=== PATIENT | female | born 1980 | race Caucasian/White ===

== ENCOUNTER 2017-12-10 19:07 | Emergency (ER) | payer OTHER ==
[~2017-12-10] VITALS: Ht 165.1 cm; Wt 60.8 kg
[~2017-12-10 19:07] MED LIST: CEPH500 PO; CLON.1 PO; HYDACE5 PO; HYDPAM50 PO; IBUP800 PO; METR500 PO; NEOPOLHYD OP; OXYACE5T PO; Polytrim Eye Dr10 ML LEFTEYE; SERT50 PO
[2017-12-10] MEDS ORDERED: WELLBUTRIN PO (19:17)
[2017-12-10] MEDS ORDERED: Pepcid40 MG PO (19:56)
[2017-12-10] MEDS ORDERED: METPRE4DP PO (19:56)
[2017-12-10] MEDS ORDERED: DIPH50 PO (19:56)
== END 2017-12-10 20:10 | disposition home or self-care (01) ==
LOC: ER 19:07
DX: T78.3XXA Angioneurotic edema, initial encounter (principal); T78.8XXA Other adverse effects, not elsewhere classified, initial encounter; F41.9 Anxiety disorder, unspecified; F17.200 Nicotine dependence, unspecified, uncomplicated
CPT/HCPCS: 96372; 96374; 96375; 99283; J0171; J1200; J2930; J3490

== ENCOUNTER → 2018-02-14 | Outpatient (CLI) | payer OTHER ==
[~2018-02-14] MED LIST changes: +DIPH50 PO; +METPRE4DP PO; +Pepcid40 MG PO; +WELLBUTRIN PO
== END | disposition home or self-care (01) ==
LOC: LAB 15:48 → LAB SHORT 15:48
PROVIDERS: Obstetrics & Gynecology
DX: Z01.419 Encounter for gynecological examination (general) (routine) without abnormal findings (principal)
CPT/HCPCS: 87624; G0123

== ENCOUNTER 2019-08-06 17:07 | Emergency (ER) | payer OTHER ==
[~2019-08-06] VITALS: Ht 165.1 cm; Wt 56.7 kg
[2019-08-06] MEDS ORDERED: ERYT1OIN RIGHTEYE (17:53)
== END 2019-08-06 17:55 | disposition home or self-care (01) ==
LOC: ER 17:07
DX: H10.9 Unspecified conjunctivitis (principal); F17.210 Nicotine dependence, cigarettes, uncomplicated
CPT/HCPCS: 99282

== ENCOUNTER 2021-03-06 11:29 | Emergency (ER) | payer OTHER ==
[~2021-03-06] VITALS: Ht 165.1 cm; Wt 59.0 kg
[~2021-03-06 11:29] MED LIST changes: +ERYT1OIN RIGHTEYE
[2021-03-06] MEDS ORDERED: TRAM50 PO (12:29)
[2021-03-06] MEDS ORDERED: Veetids 500500 MG PO (12:29)
[2021-03-06] MEDS ORDERED: KETO10 PO (12:29)
== END 2021-03-06 12:39 | disposition home or self-care (01) ==
LOC: ER 11:29
DX: K04.7 Periapical abscess without sinus (principal); K02.9 Dental caries, unspecified; F17.210 Nicotine dependence, cigarettes, uncomplicated
CPT/HCPCS: 99282

== ENCOUNTER → 2021-10-23 | Outpatient (CLI) | payer OTHER ==
[~2021-10-23] MED LIST changes: +KETO10 PO; +TRAM50 PO; +Veetids 500500 MG PO
[2021-10-26 02:06] LABS: CHLAMYDIA TRACHOMATIS, NAA Negative (Negative)
== END | disposition home or self-care (01) ==
LOC: LAB SHORT 19:23
PROVIDERS: Physician Assistant
DX: N39.0 Urinary tract infection, site not specified (principal)
CPT/HCPCS: 87086; 87491; 87591

== ENCOUNTER → 2022-04-05 | Outpatient (CLI) | payer OTHER ==
[2022-04-06 14:20] LABS: Candida species (DNA Probe) Negative (NEGATIVE); G. vaginalis (DNA Probe) Negative (NEGATIVE); T. vaginalis (DNA Probe) Positive (NEGATIVE)
[2022-04-09 01:10] LABS: CHLAMYDIA TRACHOMATIS, NAA Negative (Negative)
== END | disposition home or self-care (01) ==
LOC: LAB 18:40 → LAB SHORT 18:40
PROVIDERS: Family Medicine
DX: N89.8 Other specified noninflammatory disorders of vagina (principal)
CPT/HCPCS: 87480; 87491; 87510; 87591; 87660

== ENCOUNTER 2023-04-15 00:01 | Emergency (ER) | payer OTHER ==
[~2023-04-15] VITALS: Ht 165.1 cm; Wt 59.0 kg
[2023-04-15 00:04] VITALS: BP 107/74
[2023-04-15 00:34] LABS: BASOPHILS ABSOLUTE AUTO 0.05 K/mm3 (0.00-0.23); BASOPHILS PERCENT AUTO 1 % (0-2); EOSINOPHILS ABSOLUTE AUTO 0.33 K/mm3 (0.00-0.68); EOSINOPHILS PERCENT AUTO 4 % (0-6); Hematocrit 37.8 % (33.0-51.0); Hemoglobin 12.9 g/dL (11.5-16.0); IMMATURE GRAN ABSOLUTE AUTO 0.02 K/mm3 (0.00-0.10); IMMATURE GRAN PERCENT AUTO 0 % (0-1); LYMPHOCYTES ABSOLUTE AUTO 1.78 K/mm3 (0.84-5.20); LYMPHOCYTES PERCENT AUTO 19 % (21-46); MONOCYTES ABSOLUTE AUTO 0.67 K/mm3 (0.16-1.47); MONOCYTES PERCENT AUTO 7 % (4-13); Mean Corpuscular HGB 29.8 pg (26.0-34.0); Mean Corpuscular HGB Conc 34.1 g/dL (31.5-36.5); Mean Corpuscular Volume 87 fL (80-100); Mean Platelet Volume 9.9 fL (9.1-12.4); NEUTROPHILS PERCENT AUTO 70 % (41-73); Platelet Count 408 K/mm3 (150-400); RDW Coefficient Variation 11.6 % (11.7-14.2); RDW Standard Deviation 37.3 fL (35.1-46.3); Red Blood Cell Count 4.33 M/mm3 (3.80-5.20); White Blood Cell Count 9.55 K/mm3 (4.00-11.30)
[2023-04-15 00:53] LABS: C-REACTIVE PROTEIN, EXT RANGE 0.382 mg/dL (0.000-0.300)
[2023-04-15 01:03] LABS: Albumin, Blood 3.8 g/dL (3.4-5.0); Bilirubin, Total 0.4 mg/dL (0.1-1.0); Bun/Creatinine Ratio 23.3 (12.0-20.0); Creatinine, Blood 0.69 mg/dL (0.40-1.00); Potassium, Blood 3.9 mmol/L (3.5-5.5); Total Protein, Blood 7.8 g/dL (6.4-8.2)
[2023-04-15] MEDS ORDERED: CEPH500 PO (02:52)
== END 2023-04-15 03:12 | disposition home or self-care (01) ==
LOC: ER 00:01
PROVIDERS: Student in an Organized Health Care Education/Training Program
DX: L03.115 Cellulitis of right lower limb (principal); F17.210 Nicotine dependence, cigarettes, uncomplicated
CPT/HCPCS: 73610; 73630; 80053; 85025; 85651; 86140; 96374; 96375; 99283-25; J0690; J1885

== ENCOUNTER 2023-10-04 02:25 | Emergency (ER) | payer OTHER ==
[~2023-10-04] VITALS: Ht 165.1 cm; Wt 56.2 kg
[2023-10-04 02:37] VITALS: BP 120/79
[2023-10-04 03:07] LABS: Source, Urine Clean Catch
[2023-10-04 03:29] LABS: Bilirubin, Urine Neg (Neg); Blood, Urine 5+ (Neg); Glucose Qualitative, Urine Neg (Neg); Ketones, Urine 1+ (Neg); Leukocyte Esterase, Urine 2+ (Neg); Nitrite, Urine Neg (Neg); Protein, Urine 3+ (Neg); Urobilinogen, Urine NORM (Normal)
[2023-10-04 03:47] LABS: Appearance, Urine Turbid (Clear); Color, Urine Amber (P-Yellow)
[2023-10-04 03:51] LABS: Bacteria Many /hpf; Red Blood Cells, Urine TNTC /hpf (0-2); Squamous Epithelial Cells Mod /hpf (Few)
[2023-10-04] MEDS ORDERED: CEPH500 PO (04:07)
== END 2023-10-04 04:24 | disposition home or self-care (01) ==
LOC: ER 02:25
PROVIDERS: Emergency Medicine
DX: N39.0 Urinary tract infection, site not specified (principal); F17.210 Nicotine dependence, cigarettes, uncomplicated
CPT/HCPCS: 81001; 87077; 87086; 87186; 99283; A9270

== ENCOUNTER 2023-10-26 14:00 | Emergency (ER) | payer OTHER ==
[~2023-10-26] VITALS: Ht 165.1 cm; Wt 54.4 kg
[2023-10-26 14:27] LABS: Hematocrit 33.3 % (33.0-51.0); Hemoglobin 10.9 g/dL (11.5-16.0); Mean Corpuscular HGB 29.6 pg (26.0-34.0); Mean Corpuscular HGB Conc 32.7 g/dL (31.5-36.5); Mean Corpuscular Volume 91 fL (80-100); Mean Platelet Volume 10.3 fL (9.1-12.4); Platelet Count 283 K/mm3 (150-400); RDW Coefficient Variation 11.9 % (11.7-14.2); RDW Standard Deviation 39.2 fL (35.1-46.3); Red Blood Cell Count 3.68 M/mm3 (3.80-5.20); White Blood Cell Count 8.08 K/mm3 (4.00-11.30)
[2023-10-26 14:47] LABS: Ethanol (Alcohol), Blood, Med <3 mg/dL; Free Thyroxine 1.13 ng/dL (0.70-1.60); Salicylate <1.7 mg/dL (2.8-20.0)
[2023-10-26 14:48] LABS: Acetaminophen, Random <2.0 ug/mL (10.0-30.0); Alanine Aminotransfer (ALT/SGP 31 U/L (12-78); Albumin, Blood 3.7 g/dL (3.4-5.0); Alk Phos 45 U/L (50-136); Anion Gap 3 mmol/L (6-16); Aspartate Aminotrans (AST/SGOT 43 U/L (12-37); Bilirubin, Total 0.4 mg/dL (0.1-1.0); Blood Urea Nitrogen 19 mg/dL (8-24); Bun/Creatinine Ratio 32.4 (12.0-20.0); CO2, Blood 24 mmol/L (21-32); Calcium, Blood 8.7 mg/dL (8.5-10.1); Chloride, Blood 109 mmol/L (98-108); Creatinine, Blood 0.59 mg/dL (0.40-1.00); Globulin, Blood 3.7 g/dL (2.2-4.0); Glomerular Filtration Rate 117 (60-); Glucose, Blood 135 mg/dL (70-99); Potassium, Blood 3.6 mmol/L (3.5-5.5); Sodium, Blood 136 mmol/L (136-145); Total Protein, Blood 7.4 g/dL (6.4-8.2)
[2023-10-26 14:49] LABS: BASOPHILS PERCENT MAN 0 % (0-2); EOSINOPHILS ABSOLUTE MAN 0.16 K/mm3 (0.00-0.68); EOSINOPHILS PERCENT MAN 2 % (0-6); LYMPHOCYTES ABSOLUTE MAN 4.12 K/mm3 (0.84-5.20); LYMPHOCYTES PERCENT MAN 51 % (21-46); MONOCYTES PERCENT MAN 10 % (4-13); NEUTROPHILS ABSOLUTE MAN 2.98 K/mm3 (1.96-9.15); SEG NEUTROPHILS PERCENT MAN 37 % (41-73); TOTAL CELLS COUNTED 100
[2023-10-26] MEDS ORDERED: NARCAN4 M1 (16:06)
[2023-10-26 18:31] VITALS: BP 116/62
== END 2023-10-26 18:30 | disposition home or self-care (01) ==
LOC: ER 14:00
PROVIDERS: Emergency Medicine
DX: T40.411A Poisoning by fentanyl or fentanyl analogs, accidental (unintentional), initial encounter (principal); F15.90 Other stimulant use, unspecified, uncomplicated; F17.210 Nicotine dependence, cigarettes, uncomplicated
CPT/HCPCS: 80053; 84439; 84443; 85025; 93005; 93010; 99284-25; G0480

== ENCOUNTER 2024-11-02 20:32 | Inpatient (IN) | payer OTHER ==
[~2024-11-02] VITALS: Ht 162.6 cm; Wt 81.7 kg
[~2024-11-02 20:32] MED LIST changes: +AMOCLA875 PO; +NARCAN4 M1; +Zithromax250 MG PO
[2024-11-02 21:18] LABS: CORONAVIRUS COVID-19 AG Negative (NEGATIVE); INFLUENZA A AG Negative (NEGATIVE); INFLUENZA B AG Negative (NEGATIVE)
[2024-11-02] MEDS ORDERED: Dexamethasone Sod Phos 10 MG/ML 1ML VIAL IV ONE (21:20)
[2024-11-02] MEDS ORDERED: NS 1,000 ML IV SCH (21:20)
[2024-11-02] MEDS ORDERED: Ampicillin Sod/Sulbactam Sod 3 GM in NS 100 ML IV ONE (21:20)
[2024-11-02] MEDS ORDERED: EPINEPHrine HCL 11.25 MG/0.5 ML VIAL INH ONE (21:20)
[2024-11-02] MEDS ORDERED: Ketorolac Tromethamine 30mg Vial IV ONE (21:20)
[2024-11-02 21:36] LABS: BASOPHILS ABSOLUTE AUTO 0.07 K/mm3 (0.00-0.23); BASOPHILS PERCENT AUTO 1 % (0-2); EOSINOPHILS ABSOLUTE AUTO 0.26 K/mm3 (0.00-0.68); EOSINOPHILS PERCENT AUTO 2 % (0-6); Hematocrit 42.1 % (33.0-51.0); Hemoglobin 14.4 g/dL (11.5-16.0); IMMATURE GRAN ABSOLUTE AUTO 0.05 K/mm3 (0.00-0.10); IMMATURE GRAN PERCENT AUTO 0 % (0-1); LYMPHOCYTES ABSOLUTE AUTO 1.83 K/mm3 (0.84-5.20); LYMPHOCYTES PERCENT AUTO 12 % (21-46); MONOCYTES ABSOLUTE AUTO 1.75 K/mm3 (0.16-1.47); MONOCYTES PERCENT AUTO 12 % (4-13); Mean Corpuscular HGB 29.9 pg (26.0-34.0); Mean Corpuscular HGB Conc 34.2 g/dL (31.5-36.5); Mean Corpuscular Volume 87 fL (80-100); Mean Platelet Volume 10.2 fL (9.1-12.4); NEUTROPHILS PERCENT AUTO 74 % (41-73); Platelet Count 462 K/mm3 (150-400); RDW Coefficient Variation 11.6 % (11.7-14.2); RDW Standard Deviation 37.3 fL (35.1-46.3); Red Blood Cell Count 4.82 M/mm3 (3.80-5.20); White Blood Cell Count 14.96 K/mm3 (4.00-11.30)
[2024-11-02 21:56] LABS: Albumin, Blood 3.1 g/dL (3.4-5.0); Albumin/Globulin Ratio 0.6 (0.8-1.8); Bilirubin, Total 0.4 mg/dL (0.1-1.0); Bun/Creatinine Ratio 29.4 (12.0-20.0); Calcium, Blood 9.7 mg/dL (8.5-10.1); Creatinine, Blood 0.55 mg/dL (0.40-1.00); Globulin, Blood 5.5 g/dL (2.2-4.0); Potassium, Blood 4.7 mmol/L (3.5-5.5); Total Protein, Blood 8.6 g/dL (6.4-8.2)
[2024-11-02] MEDS ORDERED: Morphine Sulfate 4 MG/1 ML Injection IV ONE (23:20)
[2024-11-03] VITALS (7 sets, daily range): BP systolic 111–179; BP diastolic 60–97
[2024-11-03] MEDS ORDERED: NS 1,000 ML IV SCH (00:30)
[2024-11-03] MEDS ORDERED: FentaNYL Citrate 50 MCG/ML 2 ML Injection IV PRN (00:30)
[2024-11-03] MEDS ORDERED: FLU VACC TS2024-25(6MOS UP)/PF 45 MCG/0.5 ML SYRINGE IM SCH (00:30)
[2024-11-03] MEDS ORDERED: Ondansetron HCl 2 MG / ML 2ML Vial IV PRN (00:35)
[2024-11-03] MEDS ORDERED: Methadone HCL 10 MG TAB PO PRN (02:15)
[2024-11-03] MEDS ORDERED: Ketorolac Tromethamine 15mg Vial IV PRN (02:15)
--- NOTE | 2024-11-03 02:23 | NUR ---
NEW ADMIT - HOSPITALIST CONTACT PT ADMIT FOR JEWELS TONSILAR ABCESS. FULL CODE. PT TESTED POSITIVE FOR STREP THROAT. PT ARRIVED TO ROOM AT 0145. PT ABLE TO TRANSFER UNASSISTED. PT IS A/OX4. ABLE TO MAKE NEEDS KNOWN AND FOLLOW DIRECTIONS. PT STATES SHE HAS THROAT PAIN FOR PAST 5 DAYS WITH INCREASED DIFFICULTY SWALLOWING. LOSS OF APPETITE WITH LITTLE INTAKE FOR PAST THREE DAYS. PT REPORTS AT 8/10 PAIN WHEN SWALLOWING. PT DENIES TAKING PRECRIBED MEDS BUT DID REPORT SHE STARTED [facility] WEEKS A[facility]. PT REPORTS SHE STOPPED HEROIN ONE MONTH AGO. PT'S DAILY DOSE OF METHADONE IS 60MG. PT REPORTS SHE HAS NOT BEEN ABLE TO GO FOR THE LAST FEW DAYS. PT DOES NOT HAVE A CAR AND RELIES ON [facility] FOR TRANSPORTATION. PT STATES SHE LIVES WITH A ROOM MATE AND DENIES SAFETY CONCERNS FOR FOOD INSECURITY. ORIENTED PT TO ROOM AND CALL LIGHT. PT DENIES IGNITION SOURCES. CALL TO HOSPITALIST; SPOKE TO . ADVISED OF PT DISCLOSURE OF HX OF DRUG USE AND METHADONE. NEW ORDER TO D/C FENTANYL. ORDER FOR TORODOL 15MG Q8PRN, AND 1X ORDER FOR METHADONE OF 60MG. METHADONE TO BE GIVEN NEEDED UNTIL DOSE CAN BE VERIFIED LATER [facility].
[2024-11-03] MEDS ORDERED: NS 250 ML IV PRN (04:00)
[2024-11-03 05:11] LABS: BASOPHILS ABSOLUTE AUTO 0.04 K/mm3 (0.00-0.23); BASOPHILS PERCENT AUTO 0 % (0-2); EOSINOPHILS ABSOLUTE AUTO 0.04 K/mm3 (0.00-0.68); EOSINOPHILS PERCENT AUTO 0 % (0-6); Hematocrit 40.5 % (33.0-51.0); Hemoglobin 13.9 g/dL (11.5-16.0); IMMATURE GRAN ABSOLUTE AUTO 0.08 K/mm3 (0.00-0.10); IMMATURE GRAN PERCENT AUTO 1 % (0-1); LYMPHOCYTES ABSOLUTE AUTO 1.39 K/mm3 (0.84-5.20); LYMPHOCYTES PERCENT AUTO 9 % (21-46); MONOCYTES ABSOLUTE AUTO 0.15 K/mm3 (0.16-1.47); MONOCYTES PERCENT AUTO 1 % (4-13); Mean Corpuscular HGB 30.3 pg (26.0-34.0); Mean Corpuscular HGB Conc 34.3 g/dL (31.5-36.5); Mean Corpuscular Volume 88 fL (80-100); Mean Platelet Volume 10.4 fL (9.1-12.4); NEUTROPHILS ABSOLUTE AUTO 13.53 K/mm3 (1.96-9.15); NEUTROPHILS PERCENT AUTO 89 % (41-73); Platelet Count 412 K/mm3 (150-400); RDW Coefficient Variation 11.5 % (11.7-14.2); RDW Standard Deviation 36.6 fL (35.1-46.3); Red Blood Cell Count 4.58 M/mm3 (3.80-5.20); White Blood Cell Count 15.23 K/mm3 (4.00-11.30)
[2024-11-03 05:48] LABS: Albumin/Globulin Ratio 0.6 (0.8-1.8); Bilirubin, Total 0.4 mg/dL (0.1-1.0); Bun/Creatinine Ratio 33.9 (12.0-20.0); Creatinine, Blood 0.5 mg/dL (0.40-1.00); Potassium, Blood 4.4 mmol/L (3.5-5.5)
[2024-11-03] MEDS ORDERED: Ampicillin Sod/Sulbactam Sod 3 GM in NS 100 ML IV SCH (06:00)
[2024-11-03] MEDS ORDERED: Dexamethasone Sodium Phosphate 4 MG/ML 1ML Vial IV SCH (08:00)
[2024-11-03] MEDS ORDERED: Enoxaparin 40 MG/0.4 ML SYR SC SCH (09:00)
--- NOTE | 2024-11-03 18:32 | NUR ---
SHIFT SUMMARY PT A&OX4 AND ANSWERS QUESTIONS APPROPRIATELY. PT SPEECH IS MUMBLED AND SOFT. PT RECEIVED SCHEDULED AND PRN MEDICATIONS WITH NO ADVERSE REACTIONS. VSS, NO COMPLAINTS OF CP/PRESSURE OR SOB. PT ABLE TO TOLERATE ADVANCEMENT TO A REGULAR DIET AND HAS HAD SOUP, SANDWHICHES, JELLO, AND PUDDING WITH NO ADVERSE REACTIONS. NO ACUTE EVENTS AT THIS TIME. PT LEFT IN A POSITION OF SAFETY WITH FALL PRECAUTIONS IN PLACE. REPOSITIONED INDEPENDENTLY. CALL LIGHT IN REACH.
[2024-11-04 04:01] VITALS: BP 122/74
--- NOTE | 2024-11-04 04:04 | NUR ---
SHIFT SUMMARY: PT AOX4 AND VERY DROWSY. LUNG SOUNDS CLEAR AND PT DENIES ANY PAIN. TOLERATING MEDICATIONS WELL AND SLEEPING THROUGH MOST OF THE NIGHT. IND IN ROOM AND ABLE TO MAKE NEEDS KNOWN. NO ACUTE EVENTS OVERNIGHT. PT SLEEPING IN BED, BED IN LOWEST POSITION, CALL LIGHT IN REACH. CONTINUING CARE.
[2024-11-04 06:00] LABS: BASOPHILS ABSOLUTE AUTO 0.05 K/mm3 (0.00-0.23); BASOPHILS PERCENT AUTO 0 % (0-2); EOSINOPHILS PERCENT AUTO 0 % (0-6); Hematocrit 38.9 % (33.0-51.0); Hemoglobin 13.3 g/dL (11.5-16.0); IMMATURE GRAN ABSOLUTE AUTO 0.16 K/mm3 (0.00-0.10); IMMATURE GRAN PERCENT AUTO 1 % (0-1); LYMPHOCYTES ABSOLUTE AUTO 2.01 K/mm3 (0.84-5.20); LYMPHOCYTES PERCENT AUTO 9 % (21-46); MONOCYTES ABSOLUTE AUTO 0.63 K/mm3 (0.16-1.47); MONOCYTES PERCENT AUTO 3 % (4-13); Mean Corpuscular HGB Conc 34.2 g/dL (31.5-36.5); Mean Corpuscular Volume 88 fL (80-100); Mean Platelet Volume 10.6 fL (9.1-12.4); NEUTROPHILS ABSOLUTE AUTO 20.16 K/mm3 (1.96-9.15); NEUTROPHILS PERCENT AUTO 88 % (41-73); Platelet Count 450 K/mm3 (150-400); RDW Coefficient Variation 11.4 % (11.7-14.2); RDW Standard Deviation 36.7 fL (35.1-46.3); Red Blood Cell Count 4.44 M/mm3 (3.80-5.20); White Blood Cell Count 23.01 K/mm3 (4.00-11.30)
[2024-11-04 06:24] LABS: Bun/Creatinine Ratio 32.5 (12.0-20.0); Creatinine, Blood 0.46 mg/dL (0.40-1.00); Potassium, Blood 4.4 mmol/L (3.5-5.5)
[2024-11-04 07:03] VITALS: BP 112/68
[2024-11-04] MEDS ORDERED: Dexamethasone Sodium Phosphate 4 MG/ML 1ML Vial IV SCH (09:00)
[2024-11-04] MEDS ORDERED: Methadone HCL 10 MG TAB PO ONE (09:00)
[2024-11-04] MEDS ORDERED: Methadone HCL 10 MG TAB PO PRN (09:00)
[2024-11-04 12:01] VITALS: BP 105/54
[2024-11-04 16:04] VITALS: BP 130/65
--- NOTE | 2024-11-04 16:52 | NUR ---
SHIFT SUMMARY ADMITTED FOR PERITONSILLAR ABCESS. SWELLING AND PAIN IMPROVED DURING SHIFT. PT REPORTS NO ISSUES EATING OR DRINKING. NO SHORTNESS OF BREATH. IND IN ROOM. AMBULATING WELL. IV ABX INFUSING PER EMAR. PT CALLS APPROPRIATLY.
[2024-11-04 19:47] VITALS: BP 111/64
[2024-11-04] MEDS ORDERED: Lactobacil 2-S.Thermo-Bifido 1 1 Cap PO SCH (21:00)
[2024-11-04 23:58] VITALS: BP 112/61
[2024-11-05 04:08] VITALS: BP 111/70
--- NOTE | 2024-11-05 04:08 | NUR ---
SHIFT SUMMARY: PT AOX4 VERY DROWSY BUT AROUSABLE AND TOLERATING MEDICATIONS WELL. IND IN ROOM AND CALLS APPROPRIATELY ABLE TO MAKE NEEDS KNOWN. NO COMPLAINTS OF TROUBLE BREATHING OR SWALLOWING. SLEPT THROUGH MOST OF THE NIGHT WITHOUT ISSUE. NO COMPLAINTS OF PAIN. NO ACUTE EVENTS OVERNIGHT. PT RESTING IN BED, BED IN LOWEST POSITION, CALL LIGHT IN REACH. CONTINUING CARE.
[2024-11-05 05:22] LABS: BASOPHILS ABSOLUTE AUTO 0.04 K/mm3 (0.00-0.23); BASOPHILS PERCENT AUTO 0 % (0-2); EOSINOPHILS PERCENT AUTO 0 % (0-6); Hematocrit 36.5 % (33.0-51.0); Hemoglobin 12.1 g/dL (11.5-16.0); IMMATURE GRAN ABSOLUTE AUTO 0.19 K/mm3 (0.00-0.10); IMMATURE GRAN PERCENT AUTO 1 % (0-1); LYMPHOCYTES ABSOLUTE AUTO 2.21 K/mm3 (0.84-5.20); LYMPHOCYTES PERCENT AUTO 11 % (21-46); MONOCYTES ABSOLUTE AUTO 0.87 K/mm3 (0.16-1.47); MONOCYTES PERCENT AUTO 4 % (4-13); Mean Corpuscular HGB Conc 33.2 g/dL (31.5-36.5); Mean Corpuscular Volume 90 fL (80-100); Mean Platelet Volume 10.7 fL (9.1-12.4); NEUTROPHILS ABSOLUTE AUTO 17.19 K/mm3 (1.96-9.15); NEUTROPHILS PERCENT AUTO 84 % (41-73); Platelet Count 408 K/mm3 (150-400); RDW Coefficient Variation 11.5 % (11.7-14.2); Red Blood Cell Count 4.04 M/mm3 (3.80-5.20)
[2024-11-05 07:12] VITALS: BP 123/70
--- NOTE | 2024-11-05 09:27 | NUR ---
pt sitting up in bed awake a/ox4, cooperative with care, follows commands well, asking for pain meds, lungs are clear t/o, on r/a, no cough, hrr, bounding, no edema noted, ppp+2, cap refill<3 sec, vs stable, afebrile, piv to rac, site is clear and patent, btx4, abd flat soft nontender, voids without diff, skin c/w/d/, maew, manuel, call light in reach.
[2024-11-05 11:11] VITALS: BP 129/68
[2024-11-05] MEDS ORDERED: METH10 PO (12:11)
[2024-11-05] MEDS ORDERED: AMOCLA875 PO (12:12)
[2024-11-05] MEDS ORDERED: DECADRON6 M1 PO (12:12)
--- NOTE | 2024-11-05 12:31 | NUR ---
pt is being discharged to home, she was agreeable to wait until noon abx was administered, went over discharge instructions with her, she verbalized understanding, new meds faxed to [facility], iv removed intact. call light in reach, family in room.
--- NOTE | 2024-11-05 13:15 | NUR ---
pt ate lunch and is ready, to go, left via wheelchair with director business systems and family in attendance with all of her belongings.
== END 2024-11-05 13:10 | disposition home or self-care (01) | DRG 153 ==
LOC: ER 20:32 → ERHOLD 11-03 00:18 → MEDS 11-03 00:18
PROVIDERS: Family Medicine; Student in an Organized Health Care Education/Training Program; ADMIT Internal Medicine
DX: J36 Peritonsillar abscess (principal); F11.20 Opioid dependence, uncomplicated; F15.10 Other stimulant abuse, uncomplicated
CPT/HCPCS: 36415; 70491; 80048; 80053; 83605; 83880; 85025; 85651; 87428-QW; 87430; 94640; 94664; 96365; 96375; 99285-25; A9270; J0295; J1100; J1650; J1885; J2270; J7030; J7050; Q9967

== ENCOUNTER 2025-04-24 08:36 | Day surgery (SDC) | payer OTHER ==
[~2025-04-24] VITALS: Ht 165.1 cm; Wt 61.6 kg
[~2025-04-24 08:36] MED LIST changes: +DECADRON6 M1 PO; +METH10 PO
[2025-04-24] MEDS ORDERED: FentaNYL Citrate 50 MCG/ML 2 ML Injection ONE ×2 (09:04→10:39)
[2025-04-24] MEDS ORDERED: Ondansetron HCl 2 MG / ML 2ML Vial ONE (09:05)
[2025-04-24] MEDS ORDERED: Rocuronium Bromide 10 MG/ML 5ML Injection IV ONE (09:05)
[2025-04-24] MEDS ORDERED: Dexamethasone Sod Phos 10 MG/ML 1ML VIAL ONE (09:05)
[2025-04-24] MEDS ORDERED: Lidocaine HCl 4% 5 ML SDA ONE (09:12)
[2025-04-24] MEDS ORDERED: Sugammadex Sodium 200 MG/2ML SDV (100 MG/ML) ONE (09:38)
--- NOTE | 2025-04-24 10:27 | NUR ---
04/24/25 Emily Kim PT PLACED ON 4L OF OXYGEN VIA NC. PT'S O2 LEVEL DROPPED DOWN TO 88%. PT APPEARS TO BE VERY SLEEPY. PT ENCOURGAGED TO TAKE NICE DEEP BREATHES. PT DENIED PAIN, NO NAUSEA. PT'S VSS. WCTM AND WILL WEEN PT OFF OF O2 SHORTLY.
[2025-04-24 10:51] VITALS: BP 99/71
== END 2025-04-24 11:05 | disposition home or self-care (01) ==
LOC: ORSCSDS 08:36
PROVIDERS: Otolaryngology
PROC: 0CBPXZZ Excision of Tonsils, External Approach (ICD-10-PCS; principal; 2025-04-24 09:45)
DX: J36 Peritonsillar abscess (principal); F17.290 Nicotine dependence, other tobacco product, uncomplicated
CPT/HCPCS: 88305; A9270; J1100; J2003; J2405; J2704; J3010; J7120